=== PATIENT | female | born 1955 | race Caucasian/White ===

== ENCOUNTER 2021-11-13 00:06 | Emergency (ER) | payer MEDICARE, MEDICAID ==
[~2021-11-13] VITALS: Ht 167.6 cm; Wt 59.0 kg
[2021-11-13] MEDS ORDERED: IBUPROFEN 400MG TABLET PO ONE (01:15)
[2021-11-13] MEDS ORDERED: ACETAMINOPHEN 325MG TABLET PO ONE (01:15)
[2021-11-13] MEDS ORDERED: LIDOCAINE HCL 1% 20ML VIAL (Pyxis) INJ INFIL ONE (02:15)
[2021-11-13] MEDS ORDERED: LIDOCAINE HCL 1% 20ML VIAL (Pyxis) INJ INFIL NR (02:45)
[2021-11-13] MEDS ORDERED: LIDOCAINE HCL/PF 1% 10 MG/ML 5ML VIAL INFIL NR (02:45)
[2021-11-13] MEDS ORDERED: TOPUD PO (03:55)
[2021-11-13] MEDS ORDERED: IBUP-2028 MT (03:55)
[2021-11-13 09:55] VITALS: BP 180/76
== END 2021-11-13 11:20 | disposition home or self-care (01) ==
LOC: ER 00:06
DX: S62.307A Unspecified fracture of fifth metacarpal bone, left hand, initial encounter for closed fracture (principal); W18.30XA Fall on same level, unspecified, initial encounter; Y93.89 Activity, other specified; Y92.89 Other specified places as the place of occurrence of the external cause; Y99.8 Other external cause status
CPT/HCPCS: 73080; 73090; 73110; 73130; 99284; J3490

== ENCOUNTER 2022-03-21 05:57 | Emergency (ER) | payer MEDICARE, MEDICAID ==
[~2022-03-21] VITALS: Ht 167.6 cm; Wt 70.0 kg
[~2022-03-21 05:57] MED LIST: IBUP-2028 MT; TOPUD PO
[2022-03-21] MEDS ORDERED: ACETAMINOPHEN 325MG TABLET PO ONE (06:30)
[2022-03-21] MEDS ORDERED: TOPUD PO (07:39)
[2022-03-21] MEDS ORDERED: BACITRACIN ZINC OINT UDPKT TOP ONE (07:45)
[2022-03-21 12:19] VITALS: BP 155/66
== END 2022-03-21 13:01 | disposition home or self-care (01) ==
LOC: ER 05:57
DX: S71.011A Laceration without foreign body, right hip, initial encounter (principal); S70.01XA Contusion of right hip, initial encounter; I10 Essential (primary) hypertension; W01.198A Fall on same level from slipping, tripping and stumbling with subsequent striking against other object, initial encounter; Y93.89 Activity, other specified; Y92.121 Bathroom in nursing home as the place of occurrence of the external cause; Y99.8 Other external cause status
CPT/HCPCS: 72170; 99284

== ENCOUNTER 2022-06-22 20:18 | Inpatient (IN) | payer MEDICARE, MEDICAID ==
[~2022-06-22] VITALS: Ht 177.8 cm; Wt 58.7 kg
[2022-06-22] MEDS ORDERED: HYDROCODONE/ACETAMINOPHEN 10/325MG TABLET PO ONE (21:45)
[2022-06-22] MEDS ORDERED: IBUPROFEN 600MG TABLET PO ONE (21:45)
[2022-06-22 22:57] LABS: BASOPHILS % 0.3 % (0.0-2.0); HEMATOCRIT. 32.8 % (36.0-48.0); LYMPHOCYTES % 41.4 % (20.0-50.0); MEAN CORPUSCULAR HEMOGLOBIN 33.5 pg (28.0-32.0); MEAN CORPUSCULAR VOLUME 100.5 fL (81.0-99.0); MEAN PLATELET VOLUME 9.3 fl (7.4-10.4); MONOCYTES % 11.7 % (2.0-8.0); NEUTROPHILS % 43.6 % (40.0-76.0); PLATELET 100 x1000/uL (130-400); RED BLOOD CELL COUNT 3.27 mill/uL (4.2-5.4); RED CELL DISTRIBUTION WIDTH 16.8 % (11.6-14.6)
[2022-06-22 23:04] LABS: CHLORIDE 101 mEq/L (98-107)
[2022-06-22 23:11] LABS: INR 1.3; PROTHROMBIN TIME 13.6 sec (9.6-11.0)
[2022-06-23 01:15] VITALS: BP 132/63
[2022-06-23 02:32] VITALS: BP 132/63
[2022-06-23] MEDS ORDERED: DIVA500T51 MT (04:15)
[2022-06-23] MEDS ORDERED: LEVO75TA7 MT (04:15)
[2022-06-23] MEDS ORDERED: GABA-290 MT (04:15)
[2022-06-23] MEDS ORDERED: FOLI-43 MT (04:15)
[2022-06-23] MEDS ORDERED: KEPP500 MT (04:15)
[2022-06-23] MEDS ORDERED: BISA10SU62 RC (04:15)
[2022-06-23] MEDS ORDERED: MULT-626 PO (04:15)
[2022-06-23] MEDS ORDERED: FURO20TA4 MT (04:15)
[2022-06-23] MEDS ORDERED: MOM MT (04:15)
[2022-06-23] MEDS ORDERED: UMEC62.5 INH (04:15)
[2022-06-23] MEDS ORDERED: DOCU-155 PO (04:15)
[2022-06-23] MEDS ORDERED: CARV6.2548 MT (04:15)
[2022-06-23] MEDS ORDERED: FEO PR (04:15)
[2022-06-23] MEDS ORDERED: FLUO40CA49 MT (04:15)
[2022-06-23] MEDS ORDERED: POLY17PO19 PO (04:15)
[2022-06-23] MEDS ORDERED: HYDR-4005 MT (04:15)
[2022-06-23] MEDS ORDERED: AMIN30LI2 PO (04:16)
[2022-06-23] MEDS ORDERED: PANT40TA51 MT (04:16)
[2022-06-23] MEDS ORDERED: QUET25TA36 MT (04:16)
[2022-06-23] MEDS ORDERED: TAMS-11 MT (04:16)
[2022-06-23] MEDS ORDERED: CLONIDINE 0.1MG TABLET PO PRN (06:30)
[2022-06-23] MEDS ORDERED: ONDANSETRON HCL 4MG/2ML INJ IV PRN (06:30)
[2022-06-23] MEDS: MORPHINE SULFATE 2 MG/ML CPJ (NOT FOR IM USE) IV PRN ×3 (06:44→21:13)
[2022-06-23] MEDS ORDERED: NALOXONE HCL 0.4MG/ML VIAL IV PRN (06:45)
[2022-06-23 07:01] LABS: HEPATITIS B SURFACE ANTIGEN NEGATIVE
[2022-06-23 08:00] VITALS: BP 106/55
[2022-06-23] MEDS: ENOXAPARIN 40MG/0.4ML SYR SUBCUT SCH ×2 (09:00→09:57)
[2022-06-23 10:03] LABS: BASOPHILS % 0.4 % (0.0-2.0); EOSINOPHILS % 4.7 % (0.0-5.0); HEMATOCRIT. 31.7 % (36.0-48.0); HEMOGLOBIN. 10.8 g/dL (12.0-16.0); LYMPHOCYTES % 37.8 % (20.0-50.0); MEAN CORPUSCULAR HEMOGLOBIN 34.2 pg (28.0-32.0); MEAN CORPUSCULAR VOLUME 100.3 fL (81.0-99.0); MEAN PLATELET VOLUME 9.5 fl (7.4-10.4); MONOCYTES % 10.4 % (2.0-8.0); NEUTROPHILS % 46.7 % (40.0-76.0); PLATELET 97 x1000/uL (130-400); RED BLOOD CELL COUNT 3.16 mill/uL (4.2-5.4); RED CELL DISTRIBUTION WIDTH 17.1 % (11.6-14.6)
[2022-06-23 10:09] LABS: INR 1.3
[2022-06-23 10:19] LABS: CHLORIDE 102 mEq/L (98-107)
[2022-06-23 12:00] VITALS: BP 132/47
[2022-06-23 16:00] VITALS: BP 152/74
[2022-06-23 20:00] VITALS: BP 111/59
[2022-06-23] MEDS: LACTULOSE 20G/30ML UDC PO SCH (23:00)
[2022-06-24] VITALS: BP 115/53
[2022-06-24] MEDS: MORPHINE SULFATE 2 MG/ML CPJ (NOT FOR IM USE) IV PRN ×3 (01:41→20:13)
[2022-06-24] MEDS: LACTULOSE 20G/30ML UDC PO SCH ×3 (06:17→22:25)
[2022-06-24] MEDS: ENOXAPARIN 40MG/0.4ML SYR SUBCUT SCH (08:59)
[2022-06-24] MEDS ORDERED: LABETALOL 5MG/ML SYR 20 MG/4 ML SYRINGE IV PRN ×2 (13:30→14:00)
[2022-06-24] MEDS ORDERED: CEFAZOLIN 1000MG PREMIX 50 ML IV SCH (13:30)
[2022-06-24] MEDS ORDERED: HYDROMORPHONE HCL/PF 2MG/ML CPJ IV PRN ×2 (13:30→14:00)
[2022-06-24] MEDS ORDERED: ONDANSETRON HCL 4MG/2ML INJ IV PRN ×2 (13:30→14:00)
[2022-06-24] MEDS ORDERED: TRANEXAMIC ACID 1,000 MG in SODIUM CHLORIDE 0.9% 100 ML IV NR ×2 (13:30→14:30)
[2022-06-24] MEDS ORDERED: MEPERIDINE HCL/PF 25MG/ML CPJ IV PRN ×2 (14:00)
[2022-06-24] MEDS ORDERED: DIVALPROEX SODIUM 500MG DR TABLET PO SCH (17:00)
[2022-06-24 18:11] LABS: BASOPHILS % 0.5 % (0.0-2.0); EOSINOPHILS % 2.9 % (0.0-5.0); HEMATOCRIT. 29.4 % (36.0-48.0); HEMOGLOBIN. 9.8 g/dL (12.0-16.0); LYMPHOCYTES % 37.4 % (20.0-50.0); MEAN CORPUSCULAR HEMOGLOBIN 33.5 pg (28.0-32.0); MEAN CORPUSCULAR VOLUME 100.6 fL (81.0-99.0); MEAN PLATELET VOLUME 8.7 fl (7.4-10.4); NEUTROPHILS % 47.2 % (40.0-76.0); PLATELET 79 x1000/uL (130-400); RED BLOOD CELL COUNT 2.92 mill/uL (4.2-5.4); RED CELL DISTRIBUTION WIDTH 16.7 % (11.6-14.6)
[2022-06-24 18:19] LABS: INR 1.3
[2022-06-24 19:55] LABS: CHLORIDE 103 mEq/L (98-107)
[2022-06-24] MEDS ORDERED: LEVETIRACETAM 500MG TABLET PO SCH (21:00)
[2022-06-24] MEDS ORDERED: VALPROATE SODIUM 1,000 MG in SODIUM CHLORIDE 0.9% 100 ML IV NR (22:45)
[2022-06-24] MEDS ORDERED: LEVETIRACETAM 1,000 MG in SODIUM CHLORIDE 0.9% 100 ML IV NR (22:45)
[2022-06-24 23:16] VITALS: BP 151/68
[2022-06-25] VITALS (7 sets, daily range): BP systolic 133–162; BP diastolic 68–74
[2022-06-25 01:11] LABS: TOTAL IRON BINDING CAPACITY 275 ug/dL (250-450)
[2022-06-25] MEDS: LACTULOSE 20G/30ML UDC PO SCH ×3 (05:53→22:02)
[2022-06-25] MEDS ORDERED: DIVALPROEX SODIUM 500MG DR TABLET PO SCH (09:00)
[2022-06-25] MEDS ORDERED: LEVETIRACETAM 500MG TABLET PO SCH (09:00)
[2022-06-25] MEDS: ENOXAPARIN 40MG/0.4ML SYR SUBCUT SCH (09:00)
[2022-06-25] MEDS: MORPHINE SULFATE 2 MG/ML CPJ (NOT FOR IM USE) IV PRN (12:07)
[2022-06-25] MEDS ORDERED: LEVETIRACETAM 250MG TABLET PO SCH (21:00)
[2022-06-25] MEDS ORDERED: DIVALPROEX SODIUM 250MG DR TABLET PO SCH (21:00)
[2022-06-25 21:14] LABS: HEMOGLOBIN 10.1 g/dL (12.0-16.0); MEAN CORPUSCULAR HEMOGLOBIN 33.9 pg (28.0-32.0); PLATELET 95 x1000/uL (130-400); RED BLOOD CELL COUNT 2.97 mill/uL (4.2-5.4); RED CELL DISTRIBUTION WIDTH 16.9 % (11.6-14.6)
[2022-06-25] MEDS ORDERED: PHENYTOIN SODIUM 1,000 MG in SODIUM CHLORIDE 0.9% 100 ML IV NR (21:30)
[2022-06-25] MEDS ORDERED: LEVETIRACETAM 1,000 MG in SODIUM CHLORIDE 0.9% 100 ML IV SCH (23:00)
[2022-06-25] MEDS ORDERED: VALPROATE SODIUM 750 MG in SODIUM CHLORIDE 0.9% 100 ML IV SCH (23:00)
[2022-06-26] VITALS: BP 134/70
[2022-06-26 04:00] VITALS: BP 114/60
[2022-06-26] MEDS: LACTULOSE 20G/30ML UDC PO SCH ×3 (05:48→21:42)
[2022-06-26 05:57] LABS: BASOPHILS % 0.3 % (0.0-2.0); EOSINOPHILS % 2.6 % (0.0-5.0); HEMATOCRIT. 30.1 % (36.0-48.0); HEMOGLOBIN. 10.2 g/dL (12.0-16.0); LYMPHOCYTES % 29.5 % (20.0-50.0); MEAN CORPUSCULAR HEMOGLOBIN 34.1 pg (28.0-32.0); MEAN CORPUSCULAR VOLUME 100.3 fL (81.0-99.0); MEAN PLATELET VOLUME 8.6 fl (7.4-10.4); MONOCYTES % 13.3 % (2.0-8.0); NEUTROPHILS % 54.3 % (40.0-76.0); PLATELET 105 x1000/uL (130-400); RED CELL DISTRIBUTION WIDTH 17.2 % (11.6-14.6)
[2022-06-26] MEDS ORDERED: TRANEXAMIC ACID 1,000 MG in SODIUM CHLORIDE 0.9% 100 ML IV NR ×2 (07:15→08:00)
[2022-06-26] MEDS ORDERED: FENTANYL CITRATE/PF 50MCG/ML 2ML VIAL ONE (07:19)
[2022-06-26] MEDS ORDERED: PROPOFOL 200MG/20ML VIAL IV ONE (07:19)
[2022-06-26] MEDS ORDERED: LIDOCAINE HCL 1% 10 MG/ML 10ML VIAL ONE (07:19)
[2022-06-26 07:27] LABS: CHLORIDE 98 mEq/L (98-107)
[2022-06-26] MEDS ORDERED: ROCURONIUM BROMIDE 10MG/ML VIAL 5ML IV ONE (08:10)
[2022-06-26] MEDS ORDERED: PHENYTOIN SODIUM 300 MG in SODIUM CHLORIDE 0.9% 50 ML IV SCH (09:00)
[2022-06-26] MEDS ORDERED: NEOSTIGMINE METHYLSULFATE 1MG/ML 10 ML VIAL ONE (09:11)
[2022-06-26] MEDS ORDERED: GLYCOPYRROLATE 0.2 MG/ML 2ML VIAL ONE ×2 (09:11→09:12)
[2022-06-26] MEDS ORDERED: ONDANSETRON HCL 4MG/2ML INJ ONE (09:14)
[2022-06-26] MEDS ORDERED: DEXAMETHASONE 4MG/ML 1ML VIAL ONE (09:14)
[2022-06-26] MEDS ORDERED: CEFAZOLIN 1000MG PREMIX 50 ML IV SCH (09:15)
[2022-06-26] MEDS ORDERED: HYDROMORPHONE HCL/PF 2MG/ML CPJ IV PRN (09:30)
[2022-06-26] MEDS ORDERED: KETOROLAC 30MG/ML VIAL IV PRN (10:33)
[2022-06-26] MEDS ORDERED: HYDROCODONE/ACETAMINOPHEN 5/325MG TABLET PO PRN (10:34)
[2022-06-26] MEDS ORDERED: LEVETIRACETAM 1,000 MG in SODIUM CHLORIDE 0.9% 100 ML IV SCH (13:00)
[2022-06-26] MEDS: VALPROATE SODIUM 750 MG in SODIUM CHLORIDE 0.9% 100 ML IV SCH (13:21)
[2022-06-26] MEDS: ENOXAPARIN 40MG/0.4ML SYR SUBCUT SCH (13:22)
[2022-06-26] MEDS: CEFAZOLIN 1000MG PREMIX 50 ML IV SCH ×2 (14:44→21:42)
[2022-06-26 16:00] VITALS: BP 134/61
[2022-06-26] MEDS: LEVETIRACETAM 1000MG PREMIX 100 ML IV SCH (17:32)
[2022-06-26] MEDS: PHENYTOIN SODIUM 300 MG in SODIUM CHLORIDE 0.9% 50 ML IV SCH (18:34)
[2022-06-26 20:00] VITALS: BP 144/56
[2022-06-27] VITALS: BP 113/74
[2022-06-27] MEDS: VALPROATE SODIUM 750 MG in SODIUM CHLORIDE 0.9% 100 ML IV SCH ×2 (00:11→13:15)
[2022-06-27 04:00] VITALS: BP 180/79
[2022-06-27] MEDS: LACTULOSE 20G/30ML UDC PO SCH ×3 (05:47→22:00)
[2022-06-27] MEDS: CEFAZOLIN 1000MG PREMIX 50 ML IV SCH ×2 (06:02→15:00)
[2022-06-27 08:00] VITALS: BP 150/58
[2022-06-27] MEDS: PHENYTOIN SODIUM 300 MG in SODIUM CHLORIDE 0.9% 50 ML IV SCH (09:24)
[2022-06-27] MEDS: ENOXAPARIN 40MG/0.4ML SYR SUBCUT SCH (09:25)
[2022-06-27] MEDS: LEVETIRACETAM 1000MG PREMIX 100 ML IV SCH ×2 (10:43→21:14)
[2022-06-27 12:00] VITALS: BP 147/56
[2022-06-27 16:00] VITALS: BP 140/51
[2022-06-27 20:00] VITALS: BP 145/69
[2022-06-28] VITALS: BP 137/57
[2022-06-28] MEDS: CEFAZOLIN 1000MG PREMIX 50 ML IV SCH ×2 (00:05→05:50)
[2022-06-28] MEDS: VALPROATE SODIUM 750 MG in SODIUM CHLORIDE 0.9% 100 ML IV SCH ×2 (00:06→13:42)
[2022-06-28 04:00] VITALS: BP 150/65
[2022-06-28] MEDS: LACTULOSE 20G/30ML UDC PO SCH ×2 (05:50→13:42)
[2022-06-28 08:00] VITALS: BP 159/60
[2022-06-28] MEDS: ENOXAPARIN 40MG/0.4ML SYR SUBCUT SCH (10:20)
[2022-06-28] MEDS: LEVETIRACETAM 1000MG PREMIX 100 ML IV SCH (11:19)
[2022-06-28 12:00] VITALS: BP 162/69
[2022-06-28] MEDS ORDERED: NALOXONE HCL 0.4MG/ML VIAL IV PRN (13:30)
== END 2022-06-28 20:10 | DRG 521 ==
LOC: ER 20:18 → 6WST 06-23 00:07 → ENRESERV 06-23 00:28 → 6EST 06-23 16:05 → 7EST 06-24 23:00
PROVIDERS: ADMIT Internal Medicine Nephrology; ATTEND Internal Medicine Nephrology
PROC: 4A00X4Z Measurement of Central Nervous Electrical Activity, External Approach (ICD-10-PCS; 2022-06-25)
PROC: 0SRS01Z Replacement of Left Hip Joint, Femoral Surface with Metal Synthetic Substitute, Open Approach (ICD-10-PCS; principal; 2022-06-26)
DX: S72.012A Unspecified intracapsular fracture of left femur, initial encounter for closed fracture (principal); G93.41 Metabolic encephalopathy; D61.818 Other pancytopenia; E87.1 Hypo-osmolality and hyponatremia; F05 Delirium due to known physiological condition; J44.9 Chronic obstructive pulmonary disease, unspecified; I10 Essential (primary) hypertension; M20.42 Other hammer toe(s) (acquired), left foot; M20.41 Other hammer toe(s) (acquired), right foot; G40.409 Other generalized epilepsy and epileptic syndromes, not intractable, without status epilepticus; M85.80 Other specified disorders of bone density and structure, unspecified site; K56.41 Fecal impaction; Z20.822 Contact with and (suspected) exposure to COVID-19; B19.20 Unspecified viral hepatitis C without hepatic coma; D63.8 Anemia in other chronic diseases classified elsewhere; F03.90 Unspecified dementia, unspecified severity, without behavioral disturbance, psychotic disturbance, mood disturbance, and anxiety; R56.9 Unspecified convulsions; E05.90 Thyrotoxicosis, unspecified without thyrotoxic crisis or storm; F32.A Depression, unspecified; G89.29 Other chronic pain; N32.89 Other specified disorders of bladder; Z72.0 Tobacco use; Z82.49 Family history of ischemic heart disease and other diseases of the circulatory system; Z79.899 Other long term (current) drug therapy; W18.30XA Fall on same level, unspecified, initial encounter; Y93.89 Activity, other specified; Y92.89 Other specified places as the place of occurrence of the external cause; Y99.8 Other external cause status
CPT/HCPCS: 36415; 72170; 72192; 73130; 73502; 73700; 80048; 80053; 80165; 82728; 82962; 83540; 83550; 85025; 85027; 86803; 86850; 86900; 87340; 87426; 88304; 88311; 92610; 93005; 93306; 95816; 97162; 97167; 97530; 99285; C1893; J0690; J1100; J1165; J1650; J1885; J1953; J2270; J2274; J2405; J2704; J2710; J2795; J3010; J3370; J3490; J7030; J7050; A4315; C1776